=== PATIENT | female | born 1960 | race Native Hawaiian/Other Pacific Islander ===

== ENCOUNTER 2017-09-01 14:25 | Outpatient (CLI) | payer BC | END 2017-09-01 19:19 | disposition home or self-care (01) | LOC: MAMMO 14:25 | DX: Z12.31 Encounter for screening mammogram for malignant neoplasm of breast (principal) ==

== ENCOUNTER 2019-02-08 14:23 | Outpatient (CLI) | payer BC | END 2019-02-08 23:05 | disposition home or self-care (01) | LOC: MAMMO 14:23 | DX: Z12.31 Encounter for screening mammogram for malignant neoplasm of breast (principal) ==

== ENCOUNTER 2022-01-14 09:58 | Outpatient (CLI) | payer BC | END 2022-01-14 19:06 | disposition home or self-care (01) | LOC: RAD 09:58 | PROVIDERS: ATTEND Registered Nurse | DX: J44.9 Chronic obstructive pulmonary disease, unspecified (principal); J06.9 Acute upper respiratory infection, unspecified ==